=== PATIENT | male | born 1970 | race Caucasian/White ===

== ENCOUNTER 2023-08-24 07:02 | Emergency (ER) | payer SELFPAY ==
[~2023-08-24] VITALS: Ht 170.2 cm; Wt 81.6 kg
[2023-08-24 07:03] VITALS: BP 152/94; PULSE 111; RESP 16; TEMP 97.4; O2SAT 96
== END 2023-08-24 07:18 | disposition home or self-care (01) ==
LOC: MED 07:02
DX: Z02.89 Encounter for other administrative examinations (principal); Z88.0 Allergy status to penicillin
CPT/HCPCS: 99283